=== PATIENT | male | born 1970 | race Caucasian/White ===

== ENCOUNTER 2019-12-18 13:55 | Emergency (ER) | payer OTHER ==
[~2019-12-18] VITALS: Ht 167.6 cm; Wt 65.1 kg
[2019-12-18 14:07] VITALS: BP 149/89
== END 2019-12-18 15:37 | disposition home or self-care (01) ==
LOC: ED 15:20
DX: S83.242A Other tear of medial meniscus, current injury, left knee, initial encounter (principal); X58.XXXA Exposure to other specified factors, initial encounter; Y93.02 Activity, running; Y92.322 Soccer field as the place of occurrence of the external cause; Y99.8 Other external cause status
CPT/HCPCS: 99283